=== PATIENT | female | born 1950 | race Two or more races ===

== ENCOUNTER 2023-08-30 10:08 | Inpatient (IN) | payer OTHER ==
[~2023-08-30] VITALS: Ht 99.1 cm; Wt 64.4 kg
[2023-08-30] MEDS ORDERED: CITALOPRAM HBR10 MG PO (10:43)
[2023-08-30] MEDS ORDERED: VASOTEC20 M1 PO (10:44)
[2023-08-30] MEDS ORDERED: ATORVASTATIN CA10 MG PO (10:44)
[2023-08-30] MEDS ORDERED: ZYRTEC10 M3 PO (10:44)
[2023-08-30] MEDS ORDERED: ALENDRONATE SOD70 MG PO (10:44)
[2023-08-30 11:41] LABS: CALCIUM 9.4 mg/dL (8.5-10.1); CREATININE SERUM 0.72 mg/dL (0.55-1.02); GFR 79.85; POTASSIUM 4.75 mEq/L (3.5-5.1)
[2023-08-30 11:46] LABS: HEMATOCRIT 24.3 % (36.0-45.00); MEAN CELL VOLUME 87.3 fL (80.00-100.00); MEAN CORPUSCULAR HEMOGLOBIN 29.1 pg (27.00-32.0); MEAN CORPUSCULAR HGB CONC 33.4 g/dl (32.0-36.0); PLATELET COUNT 171 K/uL (150-450); RED BLOOD COUNT 2.78 M/uL (4.00-6.00); RED CELL DISTRIBUTION WIDTH 13.7 % (11.5-14.5)
[2023-08-30 11:49] LABS: INR 0.96; PARTIAL THROMBOPLASTIN TIME 22.6 SECONDS (22.0-34.0); PROTHROMBIN TIME 10.1 SECONDS (9.0-11.5)
[2023-08-30 11:49] LABS: PH,URINE 6.5 (5.0-8.0); URINE APPEARANCE Clear; URINE BILIRRUBIN Negative (NEGATIVE); URINE BLOOD Negative; URINE COLOR Yellow; URINE GLUCOSE Negative (NEGATIVE); URINE LEUKOCYTE Trace; URINE NITRATE Negative; URINE PROTEIN Negative (NEGATIVE)
[2023-08-30 11:50] LABS: URINE BACTERIA 148.6 uL (0.0-1933); URINE EPITHELIAL CELLS 10.8 uL (0.0-38.8); URINE RBC 2.1 uL (0.0-20.8); URINE WBC 7.1 uL (0.0-23.2)
[2023-08-30 11:59] LABS: ob POSITIVE (NEGATIVE)
[2023-08-30 12:00] LABS: HEMOGLOBIN 8.1 g/dL (12.0-15.00)
[2023-08-30 18:56] LABS: ALBUMIN 3.3 gm/dL (3.4-5.0); ALKALINE PHOSPHATASE 45 U/L (50-136); ALT/SGPT 17 U/L (12-78); AST/SGOT 16 U/L (15-37); BILIRUBIN TOTAL 0.18 mg/dL (0.3-1.2); BILIRUBIN,CONJUGATED < 0.10 mg/dL (0.0-0.2); BILIRUBIN,UNCONJUGATED 0.08 mg/dL (0.0-0.6); C-REACTIVE PROTEIN 0.39 MG/DL (0.00-0.29); CHOLESTEROL 105 mg/dL (0-200); HDL 52 mg/dl (40-60); LDL 38 mg/dl (0-130); PHOSPHOKINASE CREATININE 25 U/L (26-192); TOTAL PROTEIN 6.7 gm/dL (6.4-8.2); TRIGLYCERIDES 75 mg/dL (0-150); VLDL 15 (0-39)
[2023-08-30 19:17] LABS: CKMB < 1.0 NG/ML (0.5-3.6)
[2023-08-31 02:14] LABS: ABG PH 7.463 (7.35-7.45); ABG PO2 93.8 mmHg (80-100); ABG pCO2 39.7 mmHg (35-45); BASE EXCESS 3.8 mmol/l; BICARBONATE 27.7 mmol/l (23-25); SaO2 97.8 %; o2 21 %; puncture site RADIAL LEFT
[2023-08-31 02:15] LABS: allen test SATISFACTORY
[2023-08-31 08:25] LABS: PH,URINE 5.5 (5.0-8.0); URINE APPEARANCE Clear; URINE BILIRRUBIN Negative (NEGATIVE); URINE BLOOD Negative; URINE COLOR Yellow; URINE GLUCOSE Negative (NEGATIVE); URINE LEUKOCYTE Negative; URINE NITRATE Negative; URINE PROTEIN Negative (NEGATIVE)
[2023-08-31 08:27] LABS: URINE BACTERIA 123.4 uL (0.0-1933); URINE EPITHELIAL CELLS 3.8 uL (0.0-38.8); URINE WBC 2.4 uL (0.0-23.2)
[2023-08-31 10:01] LABS: HEMATOCRIT 31.6 % (36.0-45.00); HEMOGLOBIN 10.7 g/dL (12.0-15.00); MEAN CELL VOLUME 87.2 fL (80.00-100.00); MEAN CORPUSCULAR HEMOGLOBIN 29.6 pg (27.00-32.0); PLATELET COUNT 157 K/uL (150-450); RED BLOOD COUNT 3.62 M/uL (4.00-6.00)
[2023-08-31 10:34] LABS: ALBUMIN 3.5 gm/dL (3.4-5.0); BILIRUBIN TOTAL 0.63 mg/dL (0.3-1.2); BILIRUBIN,CONJUGATED 0.18 mg/dL (0.0-0.2); BILIRUBIN,UNCONJUGATED 0.45 mg/dL (0.0-0.6); C-REACTIVE PROTEIN 1.66 MG/DL (0.00-0.29); CALCIUM 8.5 mg/dL (8.5-10.1); CHOL HDL RATIO 1.6 (0-5.0); CREATININE SERUM 0.87 mg/dL (0.55-1.02); GFR 64.18; GLOBULINA 4.2 G/DL (2.4-3.5); POTASSIUM 3.41 mEq/L (3.5-5.1); TOTAL PROTEIN 7.7 gm/dL (6.4-8.2)
[2023-08-31 10:39] LABS: INR 0.95; PARTIAL THROMBOPLASTIN TIME 24.1 SECONDS (22.0-34.0)
[2023-09-01 12:09] LABS: HEMOGLOBIN 9.4 g/dL (12.0-15.00); MEAN CELL VOLUME 89.2 fL (80.00-100.00); MEAN CORPUSCULAR HGB CONC 33.6 g/dl (32.0-36.0); PLATELET COUNT 176 K/uL (150-450); RED BLOOD COUNT 3.14 M/uL (4.00-6.00); RED CELL DISTRIBUTION WIDTH 13.7 % (11.5-14.5)
== END 2023-09-03 15:50 | disposition home or self-care (01) | DRG 812 ==
LOC: ER 10:08 → SEC-K 22:55 → MEDJ 22:55 → SURH 22:55 → MEDJ 09-02 11:14
PROVIDERS: Emergency Medicine; General Practice; ADMIT Internal Medicine; ATTEND Internal Medicine
PROC: BW21ZZZ Computerized Tomography (CT Scan) of Abdomen and Pelvis (ICD-10-PCS; 2023-08-30)
PROC: BR20ZZZ Computerized Tomography (CT Scan) of Cervical Spine (ICD-10-PCS; 2023-08-30)
PROC: BW28ZZZ Computerized Tomography (CT Scan) of Head (ICD-10-PCS; 2023-08-30)
PROC: BW24ZZZ Computerized Tomography (CT Scan) of Chest and Abdomen (ICD-10-PCS; 2023-08-30)
PROC: 30233N1 Transfusion of Nonautologous Red Blood Cells into Peripheral Vein, Percutaneous Approach (ICD-10-PCS; 2023-08-30)
PROC: 4A12X4Z Monitoring of Cardiac Electrical Activity, External Approach (ICD-10-PCS; 2023-08-31)
PROC: 0DJ08ZZ Inspection of Upper Intestinal Tract, Via Natural or Artificial Opening Endoscopic (ICD-10-PCS; principal; 2023-09-02)
DX: D62 Acute posthemorrhagic anemia (principal); K44.9 Diaphragmatic hernia without obstruction or gangrene; K29.80 Duodenitis without bleeding; K25.9 Gastric ulcer, unspecified as acute or chronic, without hemorrhage or perforation; J84.10 Pulmonary fibrosis, unspecified; I10 Essential (primary) hypertension; E78.5 Hyperlipidemia, unspecified; Z20.822 Contact with and (suspected) exposure to COVID-19